=== PATIENT | male | born 1965 | race Hispanic/Latino ===

== ENCOUNTER 2017-04-20 09:04 | Day surgery (SDC) | payer OTHER ==
[~2017-04-20] VITALS: Ht 165.1 cm; Wt 85.0 kg
[~2017-04-20 09:04] MED LIST: 0.9% Sodium Chloride 1,000 ML IV SCH; NO MEDICATIONS; Sodium Chloride LOK Flush 10 mL Syringe IV PRN; fentaNYL-PF 50 mCg/mL 2 mL Inj IVPUSH PRN
[2017-04-20 09:32] VITALS: BP 108/69; PULSE 60; RESP 14; O2SAT 96
[2017-04-20 10:33] VITALS: BP 109/72; PULSE 64; RESP 12
[2017-04-20 10:57] VITALS: BP 109/75; PULSE 60; RESP 12; O2SAT 94
[2017-04-20 11:05] VITALS: BP 134/80; PULSE 63; RESP 12; O2SAT 95
--- NOTE | 2017-04-20 14:17 | ENDO ---
[address] [address] ENDOSCOPY PROCEDURE PATIENT: CAROLYN GIFFORD : 1965 MR#: [id number] ADMIT: 04/20/2017 JOB ID: [id number] PROCEDURE: Esophagogastroduodenoscopy (EGD). INDICATION: Chronic hepatitis C. FibroSURE test suggests cirrhosis and therefore EGD today for variceal screening. The patient's ASA classification is two. Mallampati score is two. MEDICATIONS: Versed 4 mg, fentanyl 100 mcg for EGD as well as colonoscopy that followed. INSTRUMENT USED: GIF H 180 J. PROCEDURE DETAILS: After informed consent was obtained, the patient was brought into the GI suite where he was placed on oxygen via nasal cannula and monitored with continuous pulse oximeter, telemetry, and blood pressure monitoring. A time-out was performed, then he was placed in the left lateral decubitus position and medications were administered for sedation. A bite block was placed. The standard esophagogastroduodenoscopy scope was inserted through the bite block and advanced under direct visualization to the second portion of duodenum without difficulty. FINDINGS: 1. Normal appearing duodenal bulb, first and second portion. 2. Normal appearing pylorus. In the antrum there was an approximately 3-4 mm nodule that was slightly erythematous that was removed with cold biopsy forceps. 3. In the distal gastric body there was a whitish 3 mm nodule that was completely removed with cold biopsy forceps. 4. The mucosa in the antrum and body of stomach was erythematous and slightly edematous suggestive of gastritis. Multiple random biopsies were obtained. 5. Retroflexed views in the gastric body revealed a normal-appearing cardia and fundus. No gastric varices were appreciated. 6. The top of the gastric folds was at 39 cm. There was salmon-colored mucosa extending up to 38 cm. Multiple random biopsies were obtained in the distal esophagus. The remainder of the esophageal exam was otherwise unremarkable. No esophageal varices seen on today's exam. IMPRESSION: 1. Antral nodule. 2. Gastric body nodule. 3. Gastritis. 4. 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 RECOMMENDATIONS: 1. PPI daily. 2. Reflux precautions. 3. Proceed to colonoscopy. PROCEDURE PERFORMED: Colonoscopy. INDICATION: Screening. The patient's ASA classification and Mallampati score and medications as above. INSTRUMENT USED: PCF H 180 AL PREPARATION QUALITY: Fair. PROCEDURE DETAILS: After completion of the EGD exam the patient was turned and then a digital rectal exam was performed which was unremarkable. The colonoscope was then inserted into the rectum and advanced under direct visualization to the cecum without difficulty. Once cecum was reached, the colonoscope was then withdrawn back into the rectum as the mucosa and lumen were examined. In the rectum, retroflexion was performed. Following retroflexion, the remaining air in the rectum was suctioned and the procedure was completed. FINDINGS: In the sigmoid colon there was an approximately 4 mm sessile polyp that was removed with cold snare. IMPRESSION: Sigmoid colon polyp. RECOMMENDATIONS: Repeat colonoscopy in five years. COMPLICATIONS: None. ESTIMATED BLOOD LOSS: Less than 5 mL.
--- NOTE | 2017-04-23 18:12 | PATH ---
SURGICAL PATHOLOGY Attending Physician:Polo Corona CASE STATUS: Signed Out PATIENT NAME: CAROLYN GIFFORD PID: [id number] : 1965 DATE COLLECTED:04/20/2017 17:10 SPECIMEN: 1: Stomach, Antrum, Biopsy 2: Gastric, Biopsy 3: Gastric, Biopsy 4: Esophagus, Biopsy 5: Colon, Polyp CLINICAL HISTORY: 1). ANTRUM NODULE BIOPSY 2). GASTRIC BIOPSY (RULE OUT H.PYLORI) 3). GASTRIC BODY NODULE 4). DISTAL ESOPHAGUS BIOPSY 5). SIGMOID POLYP FINAL DIAGNOSIS: 1.ANTRAL NODULE, BIOPSY: GASTRIC ANTRAL MUCOSA WITH CHRONIC ACTIVE HELICOBACTER GASTRITIS. HELICOBACTER ORGANISMS IDENTIFIED ON H&E STAIN. Negative for intestinal metaplasia. Negative for dysplasia and malignancy.2.STOMACH, BIOPSY: GASTRIC ANTRAL MUCOSA WITH CHRONIC ACTIVE HELICOBACTER GASTRITIS. HELICOBACTER ORGANISMS IDENTIFIED ON H&E STAIN. Negative for intestinal metaplasia. Negative for dysplasia and malignancy. 3.GASTRIC BODY NODULE, BIOPSY: GASTRIC ANTRAL-TYPE MUCOSA WITH CHRONIC ACTIVE HELICOBACTER GASTRITIS. HELICOBACTER ORGANISMS IDENTIFIED ON H&E STAIN. Negative for intestinal metaplasia. Negative for dysplasia and malignancy. 4.DISTAL ESOPHAGUS, BIOPSY: SQUAMOCOLUMNAR JUNCTIONAL MUCOSA WITH NO DIAGNOSTIC ABNORMALITY. Negative for intestinal metaplasia. Negative for dysplasia and malignancy. 5.SIGMOID COLON POLYP, BIOPSY: TUBULAR ADENOMA. ICD10 B96.81 GROSS DESCRIPTION: The specimen is received in five formalin filled containers labeled with the patient's name. 1). The specimen is labeled "antrum nodule" and consists of 2 portions of tissue which aggregate to 0.2 x 0.2 x 0.2 CM. The specimen is entirely submitted in cassette 1A. 2). The specimen is labeled "gastric" and consists of a 0.4 x 0.3 x 0.2 CM portion of tissue which is entirely submitted in cassette 2A. 3). The specimen is labeled "gastric body nodule" and consists of 2 portions of tissue which aggregate to 0.2 x 0.2 x 0.2 CM. The specimen is entirely submitted in cassette 3A. 4). The specimen is labeled "distal esophagus" and consists of 4 tiny portions of tissue which aggregate to 0.2 x 0.2 x 0.2 CM. The specimen is entirely submitted in cassette 4A. 5). The specimen is labeled "sigmoid colon polyp" and consists of a 0.3 x 0.3 x 0.3 CM portion of tissue which is entirely submitted in cassette 5A. 04/20/2017DC MICRO DESCRIPTION: See diagnosis. ICD-9 CODES: CPT CODES: 1: 45043 2: 75533 3: 85318 4: 16977 5: 88434 Electronically Signed Out José Stanton MD, Ph.D. [facility] [address], [place] [address] Technical component performed at [facility], [address], [place], [address]
== END 2017-04-20 23:59 | disposition home or self-care (01) ==
LOC: END 09:04
PROVIDERS: ATTEND Internal Medicine Gastroenterology
DX: Z12.11 Encounter for screening for malignant neoplasm of colon (principal); D12.5 Benign neoplasm of sigmoid colon; B96.81 Helicobacter pylori [H. pylori] as the cause of diseases classified elsewhere; K29.50 Unspecified chronic gastritis without bleeding; B19.20 Unspecified viral hepatitis C without hepatic coma; N28.89 Other specified disorders of kidney and ureter; F10.21 Alcohol dependence, in remission; F14.21 Cocaine dependence, in remission; Z87.891 Personal history of nicotine dependence
CPT/HCPCS: 43239; 45385; G0500; J2250; J3010; J7030